=== PATIENT | male | born 1970 | race Caucasian/White ===

== ENCOUNTER 2024-10-22 08:48 | Outpatient (CLI) | payer MEDICAID ==
[2024-10-22] MEDS ORDERED: iohexol 300mg/ml 100ml inj. ONE (09:12)
--- NOTE | 2024-10-22 15:22 | RADIOLOGY REPORT ---
Exam: CT CT ABDOMEN PELVIS W/WO IV CONTRAST History: ABN WEIGHT LOSS Comparison Study: None Technique: Multidetector spiral CT of the abdomen and pelvis was performed from lung bases to pubic s ymphysis. Initial imaging was done without IV contrast, followed by post contrast images of the abdo men and pelvis. Intravenous contrast was administered during this examination. Portal venous imaging was obtained. Axial, coronal and sagittal multiplanar reformats were performed by the technologist o n a separate workstation. CONTRAST: Type of contrast: Omni 300 Contrast injected: 100 ml Radiation Dose : CT Dose: CTDI volume is 9 mGy. Dose-length product is 982 mGy*cm Findings: Lung Bases: No acute or significant lung base finding. Normal heart size. No pleural or pericardial effusion. Liver: Diffuse hepatic steatosis. Gallbladder and biliary Tree: Sludge in the gallbladder. Spleen: Unremarkable Pancreas: The pancreas is normal in appearance without focal lesions or abnormal enhancement. Adrenal Glands: Unremarkable Kidneys: Kidneys demonstrate normal symmetric enhancement without focal lesions, calculi or hydroneph rosis. Bladder: Unremarkable Bowel: The stomach is grossly normal in appearance. Small bowel and colon are normal in caliber and d istribution. Normal appendix is visualized in the right lower quadrant without findings of appendici tis. Ascites: Absent Lymphadenopathy: No mesenteric, retroperitoneal or periportal lymphadenopathy. Abdominal wall and Mesentery: Peripherally calcified structure in the anterior pelvis measuring up to 29 mm with fat and soft tissue density. Vasculature: The visualized abdominal aorta is normal in size and caliber. There is calcified atheros clerotic plaque involving the aorta and its branches. Abdominal and pelvic vessels demonstrate normal enhancement. Pelvic Organs: Unremarkable Musculoskeletal: No aggressive focal bony lesions, acute fractures or dislocation. IMPRESSION: 1. No acute abdominal or pelvic finding. Diffuse hepatic steatosis. Sludge in the gallbladder. Perip herally calcified structure in the anterior pelvis measuring up to 29 mm could be related to old insu lt. Clinical correlation and continued follow-up is recommended. Diffuse calcified atherosclerotic di sease. Radiation optimization: All CT scans at this facility use at least one of these dose optimization vianney hniques: Automated exposure control mA and/or kV adjustment per patient size (includes targeted exams where dose is matched to clinical indication) or iterative reconstruction. HS:Y
== END 2024-10-22 23:59 | disposition home or self-care (01) ==
LOC: RAD 08:48
PROVIDERS: ATTEND Family Medicine
DX: K76.0 Fatty (change of) liver, not elsewhere classified (principal); R63.4 Abnormal weight loss; I70.0 Atherosclerosis of aorta; K82.8 Other specified diseases of gallbladder; I70.8 Atherosclerosis of other arteries
CPT/HCPCS: 74178; Q9967

== ENCOUNTER 2024-12-04 08:24 | Day surgery (SDC) | payer MEDICAID ==
[~2024-12-04] VITALS: Ht 182.9 cm; Wt 145.0 kg
[2024-12-04] VITALS (10 sets, daily range): BP systolic 116–152; BP diastolic 58–94; PULSE 72–97; RESP 13–16; TEMP 97.6; O2SAT 98–100
[~2024-12-04 08:24] MED LIST: ACET-38 PO; INSU100V9 SQ; IRON; LIPITOR
[2024-12-04] MEDS ORDERED: ondansetron/PF 4mg/2ml inj IV PRN (08:55)
[2024-12-04] MEDS ORDERED: morphine 4 MG/ML inj SYRINge IV PRN (08:55)
[2024-12-04] MEDS ORDERED: MIDAZolam 1 MG/ML 5ML VIAL ONE (08:55)
[2024-12-04] MEDS ORDERED: fentaNYL/PF 50MCG/1 ML 2ML syringe ONE (08:55)
[2024-12-04] MEDS ORDERED: labetalol 20mg/4ml (5mg/ml) syringe IV PRN (08:55)
[2024-12-04] MEDS ORDERED: ringers solution, lacted 1,000 ML IV SCH (08:55)
[2024-12-04] MEDS ORDERED: propofol inj 20 ML IV ONE (08:57)
[2024-12-04] MEDS ORDERED: LIDOcaine 2% (20mg/ml) 5ml vial ONE (08:57)
[2024-12-04] MEDS ORDERED: JARDANCE (09:00)
== END 2024-12-04 11:15 | disposition home or self-care (01) ==
LOC: GI LAB 08:24
PROVIDERS: ATTEND Internal Medicine Gastroenterology
DX: Z12.11 Encounter for screening for malignant neoplasm of colon (principal); K57.30 Diverticulosis of large intestine without perforation or abscess without bleeding; E11.9 Type 2 diabetes mellitus without complications; Z88.0 Allergy status to penicillin; Z79.899 Other long term (current) drug therapy
CPT/HCPCS: 45378; 82948; J2003; J2250; J2270; J2405; J2704; J3010; J3490; J7040; J7120; Z7512; A4620

== ENCOUNTER 2024-12-11 07:46 | Day surgery (SDC) | payer MEDICAID ==
[2024-12-11] VITALS (7 sets, daily range): BP systolic 122–145; BP diastolic 76–91; PULSE 72–93; RESP 12–17; TEMP 97.1; O2SAT 97–99
[~2024-12-11] VITALS: Ht 180.3 cm; Wt 66.5 kg
[~2024-12-11 07:46] MED LIST changes: +JARDANCE
[2024-12-11] MEDS ORDERED: fentaNYL/PF 50MCG/1 ML 2ML syringe ONE (09:08)
[2024-12-11] MEDS ORDERED: midazolam 1 mg/ML 2ml injection ONE (09:09)
[2024-12-11] MEDS ORDERED: propofol inj 20 ML IV ONE (09:18)
== END 2024-12-11 10:06 | disposition home or self-care (01) ==
LOC: GI LAB 07:46
PROVIDERS: ATTEND Internal Medicine Gastroenterology
DX: R10.13 Epigastric pain (principal); D50.0 Iron deficiency anemia secondary to blood loss (chronic); K25.9 Gastric ulcer, unspecified as acute or chronic, without hemorrhage or perforation; K31.89 Other diseases of stomach and duodenum; K21.00 Gastro-esophageal reflux disease with esophagitis, without bleeding; Z88.0 Allergy status to penicillin
CPT/HCPCS: 43239; 82948; J2250; J2704; J3010; J7120; Z7512; A4620

== ENCOUNTER 2025-04-11 09:24 | Outpatient (CLI) | payer MEDICAID ==
--- NOTE | 2025-04-11 10:21 | RADIOLOGY REPORT ---
CLINICAL HISTORY: CHONDROMALACIA, RIGHT KNEE, PAIN IN R KNEE, EFFUSION R KNEE COMPARISON: None TECHNIQUE:: Multisequence multiplanar MRI images of the right knee knee were obtained without contrast. FINDINGS: Cruciate ligaments: Edema along the course of the ACL, may be due to mucoid degeneration or sprain. No tear. PCL is intact. Extensor mechanism: Quadriceps mechanism and patellar tendon are intact. Minimal edema in the superolateral aspect of Hoffa's fat pad, may be seen with impingement. Collateral ligaments: Medial and lateral collateral ligaments are intact and otherwise unremarkable. Menisci: No significant degeneration. No evidence of meniscal tear. Cartilage: There is a thin linear area of T2 hyperintense signal along the deep surface of the lateral patellar facet near the median ridge measuring up to 4.5 mm, possible thin chondral delamination. No associated chondral fissure is seen. No other significant chondromalacia. Bones: No acute fracture or focal marrow contusion. Joint fluid: No significant joint effusion. Other: No other significant findings. IMPRESSION: 1. Suspected small chondral delamination near the junction of the lateral patellar facet and median ridge. 2. Edema along the course of the ACL, may be seen with mucoid degeneration or sprain. No tear. 3. Minimal edema in the superolateral aspect of Hoffa's fat pad, may be seen with mild impingement in the appropriate clinical setting.
== END 2025-04-11 23:59 | disposition home or self-care (01) ==
LOC: MRI02 09:24
PROVIDERS: ATTEND Pediatrics Sports Medicine
DX: M25.561 Pain in right knee (principal); M94.261 Chondromalacia, right knee; R60.0 Localized edema; M25.461 Effusion, right knee
CPT/HCPCS: 73721